=== PATIENT | male | born 1985 | race Caucasian/White ===

== ENCOUNTER 2017-03-27 14:19 | Emergency (ER) | payer OTHER ==
[2017-03-27] MEDS ORDERED: Ketorolac INJ* 30 MG/ML 1 ML VIAL IV ONE (14:31)
[2017-03-27] MEDS ORDERED: Ondansetron INJ* 2 MG/ML VIAL IV ONE (14:31)
[2017-03-27] MEDS ORDERED: NS 0.9% 1000 ML* 1,000 ML IV ONE (14:31)
[2017-03-27 15:05] LABS: Hematocrit 43 % (42-52); Hemoglobin 14.2 g/dl (14.0-18.0); Mean Corpuscular HGB Conc 33 g/dl (31-36); Mean Corpuscular Hemoglobin 29 pg (27-31); Mean Corpuscular Volume 87 fL (80-94); Mean Platelet Volume 9 um3 (7.4-10.4); Red Cell Distribution Width 14 % (10.5-15); White Blood Count 9.7 10^3/ul (3.5-10.8)
--- NOTE | 2017-03-27 15:05 | RAD ---
Indication: Left Flank pain. CT of the abdomen and pelvis was performed without oral or IV contrast administration. Coronal and sagittal reconstructed images were obtained. There is a mild to moderate left hydronephrosis and hydroureter noted. The distal left ureter there is a calculus measuring approximately 5 mm in length. Smaller nonobstructing calculi is noted in the left kidney. Small nonobstructing calculi are noted in the right kidney calyces. Lung bases demonstrate no pleural fluid, nodules or masses. Heart is of normal size without evidence of pericardial effusion. Liver is normal in size. No focal lesions or intrahepatic ductal dilatation is noted. The spleen is normal in size. The pancreas demonstrates no mass or pancreatic ductal dilatation. The common duct is not dilated. The gallbladder demonstrates contracted gallbladder. No adrenal lesions are noted. The pancreas demonstrates no mass or pancreatic duct dilatation. Small bowel demonstrates no abnormal dilatation. The appendix is visualized and is normal. Diverticulosis of the sigmoid colon without definite of evidence of diverticulitis is noted. The bladder is partially collapsed. IMPRESSION: There is a 5 mm calculus in the distal left ureter just above the left ureterovesicular junction causing mild to moderate left hydroureter and hydronephrosis. Multiple nonobstructing calculi is seen in both kidneys. Normal appendix is documented.
[2017-03-27 15:21] LABS: Albumin 4.2 g/dL (3.2-5.2); BUN/Creatinine Ratio 16.4 (8-20); C Reactive Protein 1.35 mg/L (< 5.00); Calcium 8.8 mg/dL (8.6-10.3); EGFR African American 58.4 (>60); EGFR Non-African American 45.4 (>60); Globulin 2.5 g/dL (2-4); Potassium 3.6 mmol/L (3.5-5.0); Total Bilirubin 1.3 mg/dL (0.2-1.0); Total Protein 6.7 g/dL (6.4-8.9)
[2017-03-27 15:30] LABS: Urine Bacteria Absent (Absent); Urine Bilirubin Negative (Negative); Urine Glucose Negative (Negative); Urine Nitrite Negative (Negative)
[2017-03-27] MEDS ORDERED: Ciprofloxacin 400MG IVPREMIX(* 400 MG/200 ML BAG IVPB ONE (16:03)
[2017-03-27] MEDS ORDERED: Tamsulosin CAP* 0.4 MG PO ONE (16:04)
--- NOTE | 2017-03-27 16:25 | ED ---
Frances Lau SooYoung, scribed for Kristel Jimenes MD on 03/27/17 at 1505 . GI/ HPI - HPI Summary HPI Summary: A 32 y/o M presents to ED with c/o intermittent L flank pain onset four days ago. Pain is worst today, rated as 8 out of 10 currently in ED. Pert PMHx: kidney stones. Associated sx: dysuria, hematuria. Denies fever. PCP is Dr. Rodriguez. Denies past drug abuse. Has taken Tylenol extra strength to no relief. - History of Current Complaint Chief Complaint: EDFlankPain Stated Complaint: LT SIDED PAIN, BLOOD IN URINE Hx Obtained From: Patient Onset/Duration: Started Days Ago, Still Present Current Severity: Severe Pain Intensity: 8 Location of Pain: Flank Associated Signs and Symptoms: Positive: Other: - pos: hematuria. Negative: Fever, Chills - Allergy/Home Medications Allergies/Adverse Reactions: Allergies Allergy/AdvReac Type Severity Reaction Status Date / Time Amoxicillin Allergy Hives Verified 08/11/16 10:37 Penicillins Allergy Hives Verified 08/11/16 10:37 PMH/Surg Hx/FS Hx/Imm Hx Previously Healthy: Yes Endocrine/Hematology History: Denies: Hx Anticoagulant Therapy, Hx Blood Disorders, Hx Diabetes Cardiovascular History: Reports: Hx Hypertension - tx with medications - Immunization History Date of Tetanus Vaccine: unsure Infectious Disease History: Denies: Traveled Outside the [place] in Last 30 Days - Family History Known Family History: Positive: Hypertension Negative: Cardiac Disease, Diabetes - Social History Occupation: Employed Full-time Lives: With Family Alcohol Use: Occasionally Hx Substance Use: No Substance Use Type: Reports: None Substance Use Comment - Amount & Last Used: nicotine from an inhaler Hx Tobacco Use: Yes Smoking Status (MU): Former Smoker Review of Systems Negative: Fever Positive: dysuria, flank pain, hematuria All Other Systems Reviewed And Are Negative: Yes Physical Exam Triage Information Reviewed: Yes Vital Signs On Initial Exam: Initial Vitals Temp Pulse Resp BP Pulse Ox 99.0 F 83 20 152/90 97 03/27/17 14:24 03/27/17 14:24 03/27/17 14:24 03/27/17 14:24 03/27/17 14:24 Vital Signs Reviewed: Yes Appearance: Positive: Well-Appearing, No Pain Distress Skin: Positive: Warm, Skin Color Reflects Adequate Perfusion, Dry Eyes: Positive: EOMI, [place] ENT: Positive: Pharynx normal, TMs normal Neck: Positive: Supple, Nontender Respiratory/Lung Sounds: Positive: Clear to Auscultation, Breath Sounds Present. Negative: Rales, Rhonchi, Wheezes Cardiovascular: Positive: RRR. Negative: Murmur, Rub, Other - neg: gallop Abdomen Description: Positive: Soft, CVA Tenderness (L) - L flank pain. Negative: Distended, Guarding, Other: - neg: rebounding Bowel Sounds: Positive: Present Musculoskeletal: Positive: Strength/ROM Intact. Negative: Edema Left, Edema Right Neurological: Positive: Sensory/Motor Intact, Alert, Oriented to Person Place, Time, CN Intact II-III Psychiatric: Positive: Affect/Mood Appropriate Diagnostics - Vital Signs Vital Signs Temp Pulse Resp BP Pulse Ox 03/27/17 14:24 99.0 F 83 20 152/90 97 - Laboratory Lab Results: Lab Results 03/27/17 03/27/17 03/27/17 Range/Units 14:57 14:57 14:57 WBC 9.7 (3.5-10.8) 10^3/ul RBC 4.90 (4.0-5.4) 10^6/ul Hgb 14.2 (14.0-18.0) g/dl Hct 43 (42-52) % MCV 87 (80-94) fL MCH 29 (27-31) pg MCHC 33 (31-36) g/dl RDW 14 (10.5-15) % Plt Count 175 (150-450) 10^3/ul MPV 9 (7.4-10.4) um3 Neut % (Auto) 78.2 (38-83) % Lymph % (Auto) 12.7 L (25-47) % [place] % (Auto) 6.9 (1-9) % Eos % (Auto) 1.6 (0-6) % Baso % (Auto) 0.6 (0-2) % Absolute Neuts (auto) 7.6 (1.5-7.7) 10^3/ul Absolute Lymphs (auto) 1.2 (1.0-4.8) 10^3/ul Absolute Monos (auto) 0.7 (0-0.8) 10^3/ul Absolute Eos (auto) 0.2 (0-0.6) 10^3/ul Absolute Basos (auto) 0.1 (0-0.2) 10^3/ul Absolute Nucleated RBC 0 10^3/ul Nucleated RBC % 0 Sodium 141 (133-145) mmol/L Potassium 3.6 (3.5-5.0) mmol/L Chloride 106 (101-111) mmol/L Carbon Dioxide 28 (22-32) mmol/L Anion Gap 7 (2-11) mmol/L BUN 29 H (6-24) mg/dL Creatinine 1.77 H (0.67-1.17) mg/dL Est GFR ( Amer) 58.4 (>60) Est GFR (Non-Af Amer) 45.4 (>60) BUN/Creatinine Ratio 16.4 (8-20) Glucose 119 H (70-100) mg/dL Lactic Acid 1.1 (0.5-2.0) mmol/L Calcium 8.8 (8.6-10.3) mg/dL Total Bilirubin 1.30 H (0.2-1.0) mg/dL AST 21 (13-39) U/L ALT 16 (7-52) U/L Alkaline Phosphatase 76 (34-104) U/L C-Reactive Protein 1.35 (< 5.00) mg/L Total Protein 6.7 (6.4-8.9) g/dL Albumin 4.2 (3.2-5.2) g/dL Globulin 2.5 (2-4) g/dL Albumin/Globulin Ratio 1.7 (1-3) Lipase 36 (11.0-82.0) U/L Urine Color Urine Appearance Urine pH (5-9) Ur Specific [place] (1.010-1.030) Urine Protein (Negative) Urine Ketones (Negative) Urine Blood (Negative) Urine Nitrate (Negative) Urine Bilirubin (Negative) Urine Urobilinogen (Negative) Ur Leukocyte Esterase (Negative) Urine WBC (Auto) (Absent) Urine RBC (Auto) (Absent) Ur Squamous Epith Cells (Absent) Urine Bacteria (Absent) Urine Glucose (Negative) 03/27/17 Range/Units 15:15 WBC (3.5-10.8) 10^3/ul RBC (4.0-5.4) 10^6/ul Hgb (14.0-18.0) g/dl Hct (42-52) % MCV (80-94) fL MCH (27-31) pg MCHC (31-36) g/dl RDW (10.5-15) % Plt Count (150-450) 10^3/ul MPV (7.4-10.4) um3 Neut % (Auto) (38-83) % Lymph % (Auto) (25-47) % [place] % (Auto) (1-9) % Eos % (Auto) (0-6) % Baso % (Auto) (0-2) % Absolute Neuts (auto) (1.5-7.7) 10^3/ul Absolute Lymphs (auto) (1.0-4.8) 10^3/ul Absolute Monos (auto) (0-0.8) 10^3/ul Absolute Eos (auto) (0-0.6) 10^3/ul Absolute Basos (auto) (0-0.2) 10^3/ul Absolute Nucleated RBC 10^3/ul Nucleated RBC % Sodium (133-145) mmol/L Potassium (3.5-5.0) mmol/L Chloride (101-111) mmol/L Carbon Dioxide (22-32) mmol/L Anion Gap (2-11) mmol/L BUN (6-24) mg/dL Creatinine (0.67-1.17) mg/dL Est GFR ( Amer) (>60) Est GFR (Non-Af Amer) (>60) BUN/Creatinine Ratio (8-20) Glucose (70-100) mg/dL Lactic Acid (0.5-2.0) mmol/L Calcium (8.6-10.3) mg/dL Total Bilirubin (0.2-1.0) mg/dL AST (13-39) U/L ALT (7-52) U/L Alkaline Phosphatase (34-104) U/L C-Reactive Protein (< 5.00) mg/L Total Protein (6.4-8.9) g/dL Albumin (3.2-5.2) g/dL Globulin (2-4) g/dL Albumin/Globulin Ratio (1-3) Lipase (11.0-82.0) U/L Urine Color Yellow Urine Appearance Cloudy Urine pH 6.0 (5-9) Ur Specific [place] 1.016 (1.010-1.030) Urine Protein 1+(30 mg/dl) H (Negative) Urine Ketones Negative (Negative) Urine Blood 3+ H (Negative) Urine Nitrate Negative (Negative) Urine Bilirubin Negative (Negative) Urine Urobilinogen Negative (Negative) Ur Leukocyte Esterase Trace H (Negative) Urine WBC (Auto) 3+(>20/hpf) H (Absent) Urine RBC (Auto) 3+(>10/hpf) H (Absent) Ur Squamous Epith Cells Present H (Absent) Urine Bacteria Absent (Absent) Urine Glucose Negative (Negative) Result Diagrams: 03/27/17 14:57 03/27/17 14:57 Lab Statement: Any lab studies that have been ordered have been reviewed, and results considered in the medical decision making process. - CT A/P CT CT Interpretation: Positive (See Comments) - IMPRESSION: There is a 5 mm calculus in the distal left ureter just above the left ureterovesicular junction causing mild to moderate left hydroureter and hydronephrosis. Multiple nonobstructing calculi is seen in both kidneys. Normal appendix is documented. CT Interpretation Completed By: Radiologist Re-Evaluation - Re-Evaluation 1 Re-Evaluation Time: 15:48 Change: Improved Comment: Discussing results and dispo with pt. Pt voiced understanding GIGU Course/Dx - Course Course Of Treatment: 32 yo male with hx of kidney stones but no urologist here with a 5mm stone at uvj with pain since wed his urine has 20 wbc but he has no fever, with a normal wbc count and no increase in crp. Two options were discussed with pt transfer to a hospital with urology coverage today vs antibiotics IV and abx po (pt is extremely allergic to pcns so no cephalosporins can be given).Pt elected the abx option and knows that if he develops a fever, chills or any new symptoms that he needs to go to the hospital - Diagnoses Provider Diagnoses: UTI (urinary tract infection), Kidney stone Discharge - Discharge Plan Condition: Stable Disposition: HOME Prescriptions: Ciprofloxacin TAB* [Cipro 500 MG TAB*] 500 mg PO BID #14 tab HYDROcodone/ACETAMIN 5-325 MG* [[place] 5-325 TAB*] 1 tab PO Q8H PRN #10 tab MDD 3 PRN Reason: Pain Ibuprofen TAB* [Motrin TAB* 800 MG] 800 mg PO Q6H PRN #30 tab PRN Reason: Pain Tamsulosin CAP* [Flomax CAP*] 0.4 mg PO DAILY #8 cap Patient Education Materials: Ciprofloxacin (By mouth), Hydrocodone/ Acetaminophen (By mouth), Ibuprofen (By mouth), Tamsulosin (By mouth), Kidney Stones (ED), Urinary Tract Infection in Men (ED) Referrals: Benny Rodriguez MD [Primary Care Provider] - Wesley Starkey MD [Medical Doctor] - 3 Days Additional Instructions: Follow up with Dr. Starkey, urology, in the next 2-3 days. Please return to the ED if you experience new or worsening symptoms. The documentation as recorded by the Frances oneal SooYoung accurately reflects the service I personally performed and the decisions made by me, Kristel Jimenes MD.
[2017-03-27 17:40] VITALS: BP 155/86
== END 2017-03-27 17:38 | disposition home or self-care (01) ==
LOC: ED 14:19
DX: N39.0 Urinary tract infection, site not specified (principal); N20.0 Calculus of kidney
CPT/HCPCS: 36415; 74176; 80053; 81003; 81015; 83605; 83690; 85025; 86140; 87086; 99284; J0744; J1885; J2405

== ENCOUNTER → 2017-04-07 07:01 | Emergency (ER) | payer OTHER ==
[2017-04-07 08:12] VITALS: BP 169/105
--- NOTE | 2017-04-07 08:41 | ED ---
John Lau Angela, scribed for Ajay Bermudez MD on 04/07/17 at 0743 . GI/ HPI - HPI Summary HPI Summary: This pt is a 32 y.o male presenting to [facility] [place]/o hematuria and pressure on his bladder x3 days. Pt reports he had a lithotripsy 1 week ago on 03/31/17 (had 2 kidney stones removed) and had his stents removed 3 days ago. Pt notes he last urinated at 1:30 this morning with a large clot. Pt notes that ever since his stents were removed he has been passing clots with urination. He reports no aggravating or alleviating factors. Pt denies vomiting, nausea, diarrhea, back pain, chest pain, SOB, fever. - History of Current Complaint Chief Complaint: EDUrogenitalProblems Time Seen by Provider: 04/07/17 07:19 Stated Complaint: BLOOD IN URINE Hx Obtained From: Patient Onset/Duration: Started Days Ago Pain Intensity: 8 Location of Pain: Suprapubic Associated Signs and Symptoms: Positive: Hematuria. Negative: Back Pain, Nausea , Vomiting, Fever, Dysuria Aggravating Factor(s): Nothing Alleviating Factor(s): Nothing - Allergy/Home Medications Allergies/Adverse Reactions: Allergies Allergy/AdvReac Type Severity Reaction Status Date / Time Amoxicillin Allergy Hives Verified 04/07/17 07:09 Penicillins Allergy Hives Verified 04/07/17 07:09 PMH/Surg Hx/FS Hx/Imm Hx Endocrine/Hematology History: Denies: Hx Anticoagulant Therapy, Hx Blood Disorders, Hx Diabetes Cardiovascular History: Reports: Hx Hypertension - tx with medications History: Reports: Hx Kidney Stones - Immunization History Date of Tetanus Vaccine: unsure Infectious Disease History: Denies: Traveled Outside the [place] in Last 30 Days - Family History Known Family History: Positive: None, Hypertension Negative: Cardiac Disease, Diabetes - Social History Alcohol Use: Occasionally Hx Substance Use: No Substance Use Type: Reports: None Substance Use Comment - Amount & Last Used: nicotine from an inhaler Hx Tobacco Use: Yes Smoking Status (MU): Former Smoker Review of Systems Negative: Fever, Chills Negative: Chest Pain Negative: Shortness Of Breath Negative: Vomiting, Diarrhea, Nausea Positive: hematuria, other - Bladder pressure. Negative: dysuria All Other Systems Reviewed And Are Negative: Yes Physical Exam Triage Information Reviewed: Yes Vital Signs On Initial Exam: Initial Vitals Temp Pulse Resp BP Pulse Ox 98.7 F 61 16 176/116 100 04/07/17 07:04 04/07/17 07:04 04/07/17 07:04 04/07/17 07:04 04/07/17 07:04 Vital Signs Reviewed: Yes Appearance: Positive: Well-Appearing, No Pain Distress Skin: Positive: Warm, Skin Color Reflects Adequate Perfusion, Dry Head/Face: Positive: Normal Head/Face Inspection Eyes: Positive: Normal ENT: Positive: Normal ENT inspection Neck: Positive: Supple, Nontender Respiratory/Lung Sounds: Positive: Clear to Auscultation, Breath Sounds Present Cardiovascular: Positive: RRR Abdomen Description: Positive: Soft, Other: - Suprapubic tenderness Bowel Sounds: Positive: Present Musculoskeletal: Positive: Normal Neurological: Positive: Normal Psychiatric: Positive: Normal, Affect/Mood Appropriate - [place] Coma Scale Coma Scale Total: 15 Diagnostics - Vital Signs Vital Signs Temp Pulse Resp BP Pulse Ox 04/07/17 07:09 98.7 F 61 16 176/116 100 04/07/17 07:04 98.7 F 61 16 176/116 100 - Laboratory Lab Statement: Any lab studies that have been ordered have been reviewed, and results considered in the medical decision making process. GIGU Course/Dx - Course Course Of Treatment: Mr. Carias had a recent stone, stent and stent removal and now has hematuria and inability to effectively pass urine. Post void he had about 350 cc's so a long was placed and he was D/C'd to F/U with his urologist. No U/A was obtained as it will not be possible to interpret it. His BP was running high but he was asymptomatic and hadn't taken his meds yet this AM. - Diagnoses Provider Diagnoses: Urinary retention Discharge - Discharge Plan Condition: Stable Disposition: HOME Patient Education Materials: Urinary Retention in Men (ED) Referrals: Benny Rodriguez MD [Primary Care Provider] - Additional Instructions: Your blood pressure was elevated during today's visit. Please follow up with your urologist (Dr. Arin Mclaughlin). The documentation as recorded by the John oneal Angela accurately reflects the service I personally performed and the decisions made by me, Ajay Bermudez MD.
== END | disposition home or self-care (01) ==
LOC: ED 07:01
DX: R33.9 Retention of urine, unspecified (principal); R31.9 Hematuria, unspecified
CPT/HCPCS: 99282

== ENCOUNTER 2018-08-02 19:13 | Emergency (ER) | payer SELFPAY ==
[2018-08-02] MEDS ORDERED: NS 0.9% 1000 ML* 1,000 ML BOLUS ONE (20:11)
[2018-08-02] MEDS ORDERED: Morphine VIAL* 10 MG/ML 1 ML VIAL IV ONE ×2 (20:13→21:27)
--- NOTE | 2018-08-02 20:13 | UC ---
Abdominal Pain Male HPI - HPI Summary HPI Summary: The patient is a 33-year-old male that presents here with right flank pain. His symptoms started this morning. He has had some nausea but no vomiting. The pain radiates to his right testicle. His had no fever or chills. He has a long history of labile hypertension. He is not been on any medications for his high blood pressure for approximately 3 months. He states that even on medicines his blood pressure usually runs about 170/110. He denies any chest pain shortness of breath or headache. He states he has had numerous episodes of kidney stones. Twice he has had to have a stone surgically removed. - History of Current Complaint Chief Complaint: UCGU Stated Complaint: ABDOMINAL COMPLAINT Time Seen by Provider: 08/02/18 20:01 Hx Obtained From: Patient Onset/Duration: Sudden Onset, Lasting Hours Timing: Constant Severity Initially: Moderate Severity Currently: Moderate Pain Intensity: 6 Pain Scale Used: 0-10 Numeric Location: Other - right flank Radiates to: Inguinal Character: Colicy Aggravating Factor(s): Nothing Alleviating Factor(s): Nothing Associated Signs And Symptoms: Positive: Back Pain, Nausea. Negative: Diaphoresis, Fever, Cough, Chest Pain, Dizzy, Constipation, Blood in Stool, Urinary Symptoms, Decreased Appetite, Vomiting, Diarrhea, Penile Discharge Similar Episode/Dx As:: kidney stones - Allergies/Home Medications Allergies/Adverse Reactions: Allergies Allergy/AdvReac Type Severity Reaction Status Date / Time amoxicillin Allergy Intermediate Hives Verified 08/02/18 19:42 Penicillins Allergy Intermediate Hives Verified 08/02/18 19:42 PMH/Surg Hx/FS Hx/Imm Hx Previously Healthy: Yes Cardiovascular History: Hypertension GI/ History: Kidney Stones Other History Of: Negative For: Anticoagulant Therapy - Surgical History Surgical History: None - Family History Known Family History: Positive: Hypertension Negative: Cardiac Disease, Diabetes - Social History Alcohol Use: Weekly Substance Use Type: None Substance Use Comment - Amount & Last Used: nicotine from an inhaler Smoking Status (MU): Former Smoker Household Exposure Type: Cigarettes Review of Systems All Other Systems Reviewed And Are Negative: Yes Constitutional: Positive: Negative Skin: Positive: Negative Eyes: Positive: Negative ENT: Positive: Negative Respiratory: Positive: Negative Cardiovascular: Positive: Negative Gastrointestinal: Positive: Abdominal Pain, Nausea Genitourinary: Positive: Negative Motor: Positive: Negative Neurovascular: Positive: Negative Musculoskeletal: Positive: Negative Neurological: Positive: Negative Psychological: Positive: Negative Physical Exam Triage Information Reviewed: Yes Appearance: Well-Appearing, Well-Nourished, Pain Distress Vital Signs: Initial Vital Signs Temp 99.0 F 08/02/18 19:36 Pulse 87 08/02/18 19:36 Resp 18 08/02/18 19:36 BP 241/165 08/02/18 19:36 Pulse Ox 100 08/02/18 19:36 Vital Signs Reviewed: Yes Eyes: Positive: Conjunctiva Clear ENT: Positive: Hearing grossly normal, Uvula midline. Negative: Nasal congestion, Nasal drainage, Tonsillar exudate, Trismus, Hoarse voice, Dental tenderness, Sinus tenderness Neck: Positive: Supple, Nontender, No Lymphadenopathy Respiratory: Positive: Lungs clear, Normal breath sounds, No respiratory distress, No accessory muscle use Cardiovascular: Positive: RRR, No Murmur Abdomen Description: Positive: Nontender, CVA Tenderness (R). Negative: Bruit Bowel Sounds: Positive: Present Musculoskeletal: Positive: ROM Intact, No Edema Neurological: Positive: Alert Psychological Exam: Normal Skin Exam: Normal Diagnostics - Radiology No standard instances Radiology Interpretation Completed By: Radiologist Summary of Radiographic Findings: 1. 4 mm calcification near the expected location of the distal right ureter. which could represent nonobstructing calculus versus phlebolith.A contrast. enhanced CT could help make this distinction if clinically indicated.. No. hydronephrosis or hydroureter. 2. A total of 5 nonobstructing right renal calculi, largest measuring 4 mm. No. renal calculi on the left. Of note, calculi noted in the lower pole of the left. kidney and upper pole of the right kidney on prior study are not identified. today. Re-Evaluation - Re-Evaluation First Eval Re-Evaluation Time: 21:54 Change: Improved - no pain/still with severe hypertension Abd Pain Male Course/Dx - Course Course Of Treatment: Patient is aware that he has severe hypertension. Discussed the risks of severe hypertension and suggested that he go to the emergency room for evaluation and treatment as well as stat blood work. He has declined to go there. He is aware of risks including heart attack stroke and kidney disease. He states that he will follow up to the ER if he develops headache chest pain or shortness of breath. He states that he will make an appointment to follow-up with his physician at [facility]. - Differential Dx/Clinical Impression Provider Diagnosis: Urolithiasis, Renal colic on right side, Severe hypertension Discharge - Sign-Out/Discharge Documenting (check all that apply): Patient Departure All imaging exams completed and their final reports reviewed: Yes - Discharge Plan Condition: Guarded Disposition: HOME Prescriptions: Eplerenone [Inspra] 50 mg PO DAILY #30 tablet Eplerenone [Inspra] 50 mg PO DAILY #30 tablet HYDROcodone/ACETAMIN 5-325 MG* [[place] 5-325 TAB*] 1 tab PO Q4H PRN #15 tab MDD 6 PRN Reason: Pain Lisinopril/HCTZ 20/12.5(NF) [Zestoretic 20/12.5(NF)] 1 tab PO DAILY #30 tab Tamsulosin CAP* [Flomax CAP*] 0.4 mg PO BEDTIME #7 cap Tamsulosin CAP* [Flomax CAP*] 0.4 mg PO BEDTIME #7 cap Referrals: Benny Rodriguez MD [Primary Care Provider] - - Billing Disposition and Condition Condition: GUARDED Disposition: Home
[2018-08-02 21:44] VITALS: BP 218/141
[2018-08-02] MEDS ORDERED: HYDROcodone/ACETAMIN 5-325 MG* 1 TAB PO ONE (21:59)
== END 2018-08-02 22:12 | disposition home or self-care (01) ==
LOC: UCEAST 19:13
DX: N20.9 Urinary calculus, unspecified (principal); Z87.442 Personal history of urinary calculi; N23 Unspecified renal colic; I10 Essential (primary) hypertension
CPT/HCPCS: 74176; 81003; 96360; 96374; 96376; 99212; G0463; J2270